=== PATIENT | female | born 1985 | race Caucasian/White ===

== ENCOUNTER → 2018-10-08 12:21 | Outpatient (CLI) | payer OTHER, SELFPAY ==
--- NOTE | 2018-10-08 12:25 | DI.RAD.S_ITS ---
PROCEDURE: XR FOOT LT MIN 3V INDICATIONS: Pain in midfoot and 5th metatarsal TECHNIQUE: 3 views of the foot were acquired. COMPARISON: None. FINDINGS: Bones: No fractures or dislocations. No suspicious bony lesions. Soft tissues: No tibiotalar joint effusion. Achilles tendon appears normal. IMPRESSION: No visualized acute fracture or dislocation. However, if clinical concern and/or pain persist, short interval imaging followup in 7-10 days is recommended, as occult injury cannot be definitively excluded. Dictated by: Beryl Gaona M.D. on 10/08/2018 at 13:09 Approved by: Beryl Gaona M.D. on 10/08/2018 at 13:09
--- NOTE | 2018-10-08 13:46 | DI.RAD.S_ITS ---
PROCEDURE: XR FOOT LT MIN 3V INDICATIONS: pain midfoot TECHNIQUE: 3 views of the foot were acquired. COMPARISON: [facility], , XR FOOT LT MIN 3V, 10/08/2018, 12:27. FINDINGS: Bones: No fractures or dislocations. No suspicious bony lesions. Soft tissues: No tibiotalar joint effusion. Achilles tendon appears normal. IMPRESSION: No evidence of left foot fracture or dislocation. No gross soft tissue abnormality. Dictated by: Waqas Bear M.D. on 10/08/2018 at 14:10 Approved by: Waqas Bear M.D. on 10/08/2018 at 14:10
== END ==
PROVIDERS: PCP Physician Assistant Medical; Visit Provider Physician Assistant
DX: M79.672 Pain in left foot (principal)
CPT/HCPCS: 73630